=== PATIENT | male | born 1955 | race Caucasian/White ===

== ENCOUNTER 2022-08-20 10:41 | Emergency (ER) | payer BC, OTHER ==
[2022-08-20] MEDS ORDERED: Aspirin 81 MG Tab.Chew NGTUBE ONE (10:56)
[2022-08-20] MEDS ORDERED: Sodium Chloride 0.9% 10 ML Syringe FLUSH PRN (10:56)
[2022-08-20] MEDS ORDERED: Sodium Chloride 0.9% 1,000 ML IV ONE (11:00)
[2022-08-20 11:08] LABS: ESTIMATED GFR 55 mL/min (>60)
[2022-08-20] MEDS ORDERED: Heparin Sodium 5,000 Units/ML Vial IVPUSH ONE ×2 (11:34→11:45)
[2022-08-20] MEDS ORDERED: Aspirin 300 MG Supp RECTAL ONE (11:45)
[2022-08-20] MEDS ORDERED: Heparin Sodium/0.45% NaCl 500 ML IV SCH ×2 (11:45)
== END 2022-08-20 12:00 ==
LOC: FB.ED 10:41
DX: I46.9 Cardiac arrest, cause unspecified (principal); I21.3 ST elevation (STEMI) myocardial infarction of unspecified site; I10 Essential (primary) hypertension; E11.9 Type 2 diabetes mellitus without complications
CPT/HCPCS: 31500; 36415; 43752; 51702; 70450; 71045; 80053; 83605; 83735; 84484; 85025; 85610; 85730; 86140; 87040; 92950; 93005; 96361; 96374; 99285-25; A9270-GY; J1644; J7030